=== PATIENT | male | born 1975 | race Caucasian/White ===

== ENCOUNTER 2016-10-01 14:58 | Emergency (ER) | payer MEDICAID ==
[~2016-10-01] VITALS: Ht 160 cm; Wt 65.0 kg
[2016-10-01 15:10] VITALS: BP 149/95
== END 2016-10-01 16:47 | disposition home or self-care (01) ==
LOC: ED 14:58
DX: S31.119D Laceration without foreign body of abdominal wall, unspecified quadrant without penetration into peritoneal cavity, subsequent encounter (principal); W26.9XXD Contact with unspecified sharp object(s), subsequent encounter